=== PATIENT | male | born 1985 | race Caucasian/White ===

== ENCOUNTER 2018-11-16 15:12 | Emergency (ER) | payer SELFPAY, OTHER | END 2018-11-16 16:11 | disposition home or self-care (01) | LOC: E/R 15:12 | DX: S16.1XXA Strain of muscle, fascia and tendon at neck level, initial encounter (principal); S00.03XA Contusion of scalp, initial encounter; W18.30XA Fall on same level, unspecified, initial encounter; Y92.89 Other specified places as the place of occurrence of the external cause | CPT/HCPCS: 70450; 72125; 99284-25 ==